=== PATIENT | female | born 1970 | race African-American/Black ===

== ENCOUNTER 2018-07-11 07:14 | Day surgery (SDC) | payer OTHER ==
[~2018-07-11 07:14] MED LIST: HALDOL5 MG PO; XANAX XR 1 MG TA1 MG PO
[2018-07-11 07:37] LABS: HEMATOCRIT 39.7 % (36.0-48.0); HEMOGLOBIN 13.4 g/dL (12-16); MCH 29.2 pg (26.0-34.0); MCHC 33.8 g/dL (31.0-37.0); MCV 86.5 fL (80.0-100.0); MEAN PLATELET VOLUME 9.3 fL (7.4-10.4); RBC 4.59 10x6/uL (4.00-5.40); RDW 13.4 % (11.5-14.5); WBC 6.3 10x3/uL (4.8-10.8)
[2018-07-11 08:02] LABS: HCG SERUM NEGATIVE (NEGATIVE)
[2018-07-11 08:16] VITALS: BP 122/72; BMI 32.3
[2018-07-11 08:25] LABS: HCG URINE NEGATIVE (NEGATIVE)
--- NOTE | 2018-07-16 18:47 | OP ---
PATIENT NAME: AJIT DUDLEY MEDICAL RECORD: [id number] :70 LOCATION:D.FORMERLY [facility] ADMISSION DATE: SURGEON: MIKE STEIN MD DATE OF OPERATION: 07/11/2018 PREOPERATIVE DIAGNOSES: 1. Intractably symptomatic hemorrhoids. 2. Fourth-degree internal hemorrhoidal prolapse of the anus. POSTOPERATIVE DIAGNOSES: 1. Intractably symptomatic hemorrhoids. 2. Fourth-degree internal hemorrhoidal prolapse of the anus. 3. Possible rectal prolapse. PROCEDURE: Procedure for prolapse and hemorrhoids. SURGEON: Mike Stein MD TEACHER PHYSICALLY IMPAIRED: None. BLOOD LOSS: Minimal. ANESTHESIA: General. COMPLICATIONS: None. The risks, possible complications and alternatives to the procedure were explained to the patient, also to her mom. They elected to proceed. The discussion specifically included, but was not limited to, bleeding requiring an emergency reoperation, infection, recurrent anal prolapse, and possibility of rectal prolapse. OPERATIVE COURSE: The patient was conveyed to the operating room electively on 07/11/2018. General anesthesia was induced by the anesthesia staff. The patient was placed in the lithotomy position. The buttocks were taped laterally. The anus and perianal areas were sterilely prepped and draped. The dilator retractor was placed and sewed to the surrounding anoderm with 2-0 silks. A mucosal pursestring suture of 2-0 Prolene was applied 1 cm cephalad to the clear retractor. The PPH stapling device was inserted with the anvil cephalad to the pursestring suture, which was then tightened and tied. The stapling device was engaged. It was then fired. It was then removed. There was an entire donut of lower rectal and internal hemorrhoidal tissue within the device. Bleeding along the anastomotic staple line was controlled with [id number] 3-0 Vicryls. I examined the vagina, particularly the back wall of the vagina and I noted no injury to the back wall of the vagina. I tried to induce a rectal prolapse at this point, and was unable to reduce any rectal prolapse. It appears that the patient anal prolapse was now resolved with this operative procedure. A combination of Marcaine and a steroid preparation were used to infiltrate the perianal tissues. Gelfoam was applied within the anus and lower rectum. A topical anesthetic cream was applied to the external hemorrhoids. The patient was then extubated and conveyed to the post-anesthesia care unit where she was in a stable condition. She will be dismissed home on Colace, Valium as well as hydrocodone. I will see her in the office in 2-3 weeks. OPERATIVE REPORT [id number] OCTAVIA TRANSINT:[id number] Voice Confirmation ID: [id number] DOCUMENT ID: [id number] MIKE STEIN MD at 1847 CC: [id number] DICTATION DATE: 07/11/18 1118 SALES OFFICER: 07/11/18 1159 [facility] [place] 07/11/18 [id number] [place] [address]
== END 2018-07-11 12:15 | disposition home or self-care (01) ==
LOC: D.OPS 07:14 → D.PAN 09:30 → D.OPS 11:15 → D.PAN 11:15 → D.OPS 12:15
PROVIDERS: Anesthesiology; ATTEND Surgery
DX: K64.3 Fourth degree hemorrhoids (principal); Z01.812 Encounter for preprocedural laboratory examination

== ENCOUNTER → 2018-12-24 16:09 | Outpatient (CLI) | payer OTHER | END | disposition home or self-care (01) | LOC: D.RAD 16:09 | PROVIDERS: ATTEND Internal Medicine Gastroenterology | DX: R10.9 Unspecified abdominal pain (principal); K58.9 Irritable bowel syndrome, unspecified; R19.4 Change in bowel habit ==

== ENCOUNTER → 2019-04-30 12:14 | Outpatient (CLI) | payer OTHER | END | disposition home or self-care (01) | LOC: D.RAD 12:14 | PROVIDERS: ATTEND Internal Medicine Gastroenterology | DX: R10.84 Generalized abdominal pain (principal); K59.00 Constipation, unspecified ==

== ENCOUNTER → 2019-05-12 10:50 | Outpatient (CLI) | payer OTHER | END | disposition home or self-care (01) | LOC: D.RAD 05-11 08:00 | PROVIDERS: ATTEND Internal Medicine Gastroenterology | DX: R10.84 Generalized abdominal pain (principal); K59.00 Constipation, unspecified ==

== ENCOUNTER → 2019-05-22 07:19 | Outpatient (CLI) | payer OTHER | END | disposition home or self-care (01) | LOC: D.RAD 07:19 | PROVIDERS: ATTEND Internal Medicine Gastroenterology | DX: R10.84 Generalized abdominal pain (principal); K59.00 Constipation, unspecified ==